=== PATIENT | female | born 1965 | race Caucasian/White ===

== ENCOUNTER 2016-02-28 10:09 | Day surgery (SDC) | payer OTHER ==
[~2016-02-28] VITALS: Ht 167.6 cm; Wt 73.7 kg
[2016-02-28 10:58] VITALS: Ht 167.6 cm; Wt 73.7 kg
[2016-02-28 11:21] VITALS: BP 122/75; PULSE 61; RESP 12
[2016-02-28 11:50] VITALS: BP 119/68; PULSE 53
[2016-02-28 12:30] VITALS: BP 110/64; PULSE 72; RESP 18
[2016-02-28] MEDS ORDERED: FENTAnyl 50 MCG/ML VIAL ONE (13:28)
[2016-02-28] MEDS ORDERED: MIDAZOLAM 1 MG/ML 2 ML INJ ONE (13:28)
--- NOTE | 2016-02-28 17:59 | GILP ---
DATE OF PROCEDURE: NAME OF PROCEDURE: Colonoscopy. SURGEON: Keyonna Worrell MD PREOPERATIVE DIAGNOSIS: Screening colonoscopy. POSTOPERATIVE DIAGNOSES: 1. Colonoscopy all the way to the cecum. 2. Internal and external hemorrhoids. 3. No colon neoplasm was identified. INDICATION FOR THE PROCEDURE: Ms. Dionne Lujan is a 51-year-old female patient who was sc heduled for screening colonoscopy. The procedure and possible complications were well explained to the patient, she understood and cons ented to the procedure. DESCRIPTION OF PROCEDURE: Under the influence of fentanyl and Versed, the colonoscope was carefully introduced in the rectum and under direct vision, it was advanced all the way to the cecum. FINDINGS: The patient had internal and external hemorrhoids. No colon neoplasm was identified. The patient tolerated the procedure very well and there was no complication from the procedure. At the end of the procedure, she was awake with stable vital signs and she was discharged home to the [facility] of her family. IMPRESSION: Please see postoperative diagnosis. PLAN: Next screening colonoscopy in 10 years. Dictated By: KEYONNA MCKEON/KAYLA Conf#: [id number] DID#: [id number]
== END 2016-02-28 13:35 | disposition home or self-care (01) ==
LOC: GIL 10:09
PROVIDERS: ATTEND Internal Medicine Gastroenterology
DX: Z12.11 Encounter for screening for malignant neoplasm of colon (principal); K64.8 Other hemorrhoids; K64.4 Residual hemorrhoidal skin tags
CPT/HCPCS: 45378; J2250; J3010